=== PATIENT | female | born 1965 | race Caucasian/White ===

== ENCOUNTER 2017-11-05 14:04 | Emergency (ER) | payer OTHER ==
[~2017-11-05] VITALS: Ht 175.3 cm; Wt 83.5 kg
[2017-11-05] MEDS ORDERED: LABETALOL HCL 20 MG/4 ML VIAL IV ONE (14:15)
--- NOTE | 2017-11-05 14:23 | ED General ---
General Stated Complaint: ELEV BP/HEADACHE Source of Information: Patient Exam Limitations: No Limitations History of Present Illness Time Seen by Provider: 14:03 Initial Comments Here with report of right-sided headache with radiation to the right neck. Also Complains of tingling on the right side of the face and right arm. Onset at 10 p.m. last night. States that it was thunderclap and severe. Also noted to have hypertension. She went to the urgent care and was found to have blood pressure 220s over 110s. Transported here via EMS for further evaluation. Patient has family history of brother who had aneurysm and the age of 54. Denies nausea, vomiting or chest pain. Does report some weakness in the right arm. EMS transported. [place] scale 0 with full range of motion and movement of all extremities. Timing/Duration: 12-24 Hours Severity: Moderate, Severe Associated Systoms: No Chest Pain, No Cough, No Diaphoresis, No Fever/Chills, Headaches, No Nausea/Vomiting, No Seizure, No Shortness of Air, No Weakness Allergies and Home Medications Allergies Coded Allergies: No Known Drug Allergies (Unverified , 11/05/17) Home Medications Lisinopril 20 Mg Tablet, 20 MG PO DAILY, (Reported) Montelukast Sodium 10 Mg Tablet, 10 MG PO DAILY, (Reported) Naproxen 500 Mg Tablet, 500 MG PO BID, (Reported) Constitutional: see HPI, No chills, No fever EENTM: No eye pain, No vision loss, No nose congestion Respiratory: No cough, No short of breath Cardiovascular: see HPI, No chest pain, No edema Gastrointestinal: No abdominal pain, No nausea, No vomiting Genitourinary: no symptoms reported Musculoskeletal: see HPI, muscle pain, neck pain Skin: no symptoms reported Psychiatric/Neurological: See HPI, Headache, Numbness, Tingling All Other Systems Reviewed Negative Unless Noted: Yes Past Faznbia-Muengp-Njpqav Hx Patient Social History Alcohol Use: Occasionally Uses Recreational Drug Use: No Smoking Status: Never a Smoker Surgeries History of Surgeries: Yes Surgeries: Abdominal, Section, Orthopedic Respiratory History of Respiratory Disorde: No Cardiovascular History of Cardiac Disorders: Yes Cardiac Disorders: Hypertension Neurological History of Neurological Disord: No Genitourinary History of Genitourinary Disor: No Gastrointestinal History of Gastrointestinal Di: No Musculoskeletal History of Musculoskeletal Dis: Yes Musculoskeletal Disorders: Arthritis Endocrine History of Endocrine Disorders: No Reviewed Nursing Assessment Reviewed/Agree w Nursing PMH: Yes Family Medical History Significant Family History: Cerebral Aneurysm Physical Exam Vital Signs Vital Sign - Last 12Hours 11/05/17 14:11 Temp 97.5 Pulse 62 Resp 11 B/P (MAP) 200/114 (142) Pulse Ox 98 O2 Delivery Room Air Capillary Refill : General Appearance: WD/WN, Mild Distress (headache and neck pain) Eyes: Bilateral Eye Normal Inspection, Bilateral Eye PERRL, Bilateral Eye EOMI HEENT: PERRL/EOMI, TMs Normal, Normal ENT Inspection, Pharynx Normal Neck: Non Tender, Supple Respiratory: Lungs Clear, Normal Breath Sounds Cardiovascular: Regular Rate, Rhythm, No Murmur Gastrointestinal: Non Tender, Soft Back: Normal Inspection, No CVA Tenderness, No Vertebral Tenderness Extremity: Normal Inspection, Normal Range of Motion, Non Tender Neurologic/Psychiatric: Alert, Oriented x3, 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, 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 Skin: Normal Color, Warm/Dry Progress/Results/Core Measures Suspected Sepsis SIRS Temperature: Pulse: Respiratory Rate: Laboratory Tests 11/05/17 14:10: White Blood Count 10.2 Blood Pressure / Mean: Laboratory Tests 11/05/17 14:10: Creatinine 0.97, Platelet Count 274, Total Bilirubin 0.4 Results/Orders Lab Results Laboratory Tests Test 11/05/17 14:10 11/05/17 14:15 Range/Units White Blood Count 10.2 4.3-11.0 10^3/uL Red Blood Count 4.54 4.35-5.85 10^6/uL Hemoglobin 14.1 11.5-16.0 G/DL Hematocrit 42 35-52 % Mean Corpuscular Volume 92 80-99 FL Mean Corpuscular Hemoglobin 31 25-34 PG Mean Corpuscular Hemoglobin Concent 34 32-36 G/DL Red Cell Distribution Width 12.3 10.0-14.5 % Platelet Count 274 130-400 10^3/uL Mean Platelet Volume 9.5 7.4-10.4 FL Neutrophils (%) (Auto) 65 42-75 % Lymphocytes (%) (Auto) 25 12-44 % Monocytes (%) (Auto) 8 0-12 % Eosinophils (%) (Auto) 2 0-10 % Basophils (%) (Auto) 0 0-10 % Neutrophils # (Auto) 6.6 1.8-7.8 X 10^3 Lymphocytes # (Auto) 2.5 1.0-4.0 X 10^3 Monocytes # (Auto) 0.9 0.0-1.0 X 10^3 Eosinophils # (Auto) 0.2 0.0-0.3 10^3/uL Basophils # (Auto) 0.0 0.0-0.1 10^3/uL Erythrocyte Sedimentation Rate 5 0-30 MM/HR Sodium Level 140 135-145 MMOL/L Potassium Level 3.7 3.6-5.0 MMOL/L Chloride Level 105 98-107 MMOL/L Carbon Dioxide Level 25 21-32 MMOL/L Anion Gap 10 5-14 MMOL/L Blood Urea Nitrogen 17 7-18 MG/DL Creatinine 0.97 0.60-1.30 MG/DL Estimat Glomerular Filtration Rate 60 BUN/Creatinine Ratio 18 Glucose Level 101 70-105 MG/DL Calcium Level 9.9 8.5-10.1 MG/DL Total Bilirubin 0.4 0.1-1.0 MG/DL Aspartate Amino Transf (AST/SGOT) 21 5-34 U/L Alanine Aminotransferase (ALT/SGPT) 19 0-55 U/L Alkaline Phosphatase 77 40-136 U/L C-Reactive Protein High Sensitivity 0.13 0.00-0.50 MG/DL Total Protein 8.3 H 6.4-8.2 GM/DL Albumin 4.6 H 3.2-4.5 GM/DL Urine Color YELLOW Urine Clarity CLEAR Urine pH 6.5 5-9 Urine Specific Brumley 1.005 L 1.016-1.022 Urine Protein NEGATIVE NEGATIVE Urine Glucose (UA) NEGATIVE NEGATIVE Urine Ketones NEGATIVE NEGATIVE Urine Nitrite NEGATIVE NEGATIVE Urine Bilirubin NEGATIVE NEGATIVE Urine Urobilinogen NORMAL NORMAL MG/DL Urine Leukocyte Esterase NEGATIVE NEGATIVE Urine RBC (Auto) NEGATIVE NEGATIVE Urine RBC NONE /HPF Urine WBC NONE /HPF Urine Squamous Epithelial Cells RARE /HPF Urine Crystals NONE /LPF Urine Bacteria NEGATIVE /HPF Urine Casts NONE /LPF Urine Mucus NEGATIVE /LPF Urine Culture Indicated NO My Orders Orders - HERON JONES MD Ct Angio Head/Neck (11/05/17 14:45) Iohexol Injection (Omnipaque 350 Mg/Ml 1 (11/05/17 15:00) Sodium Chloride Flush (Catheter Flush Sy (11/05/17 15:00) Fentanyl Injection (Sublimaze Injection (11/05/17 15:38) Hs C Reactive Protein (11/05/17 15:52) Erythrocyte Sedimentation Rate (11/05/17 15:52) Medications Given in ED Current Medications Medications Dose Ordered Sig/Doyle Route Start Time Stop Time Status Last Admin Dose Admin Iohexol 100 ml ONCE ONCE IV 11/05/17 15:00 11/05/17 15:01 DC 11/05/17 15:00 80 ML Labetalol HCl start 10mg, repeat in 10minu... ONCE ONCE IV 11/05/17 14:15 11/05/17 14:16 DC 11/05/17 15:00 10 MG Sodium Chloride 10 ml NEEDED PRN IV 11/05/17 15:00 11/05/17 15:00 10 ML Vital Signs/I&O Vital Sign - Last 12Hours 11/05/17 14:11 Temp 97.5 Pulse 62 Resp 11 B/P (MAP) 200/114 (142) Pulse Ox 98 O2 Delivery Room Air Capillary Refill : Progress Note : Progress Note Seen and evaluated. IV, labs, EKG, UA, CT head. Anticipate CT angiogram of the head and neck. Labetalol 10 mg IV. Repeat Andrew 10 mg IV. 1546: Blood pressure 183/94. Fentanyl 50 g IV for headache. Heart rate 61. CT of the head and CT angiogram head and neck are negative for aneurysm or other acute findings. We will try to treat headache and blood pressure. Monitor patient. Fentanyl 50 g IV given. 1650: Blood pressure 144/82 and headache is much improved. No significant findings overall. Rechecked for sedimentation rate and CRP as well and those were negative. I hesitate to start blood pressure medicine at this point as the blood pressure may be related to the headache. Patient will continue home medication. She'll follow-up with her doctor tomorrow. Discharged home with return precautions. Patient family verbalized understanding instructions and agreement with plan. ECG Initial ECG Impression Date: Nov 05, 2017 Initial ECG Impression Time: 14:11 Initial ECG Rate: 64 Initial ECG Rhythm: Normal Sinus Initial ECG Impression: Normal Initial ECG Comparisson: No Previous ECG Available Comment Sinus rhythm with normal axis. No evidence of ST elevation OK. No previous available for comparison. Interpreted by me. Diagnostic Imaging Diagonstic Imaging: Xray Plain Films/CT/US/NM/MRI: chest Comments NAME: BART DIAZ [facility] REC#: [id number] PT STATUS: REG ER : 1965 PHYSICIAN: ZAKIYA SUE APRN ADMIT DATE: 11/05/17/ER Draft Date of Exam:11/05/17 CHEST 1 VIEW, AP/PA ONLY INDICATION: Headache. Neck pain. COMPARISON: None FINDINGS: Single frontal view of the chest demonstrates normal heart size and pulmonary vascularity. The lungs are well aerated and clear. No large pleural effusion or pneumothorax is seen. The visualized osseous structures show no acute abnormalities. IMPRESSION: 1. No acute cardiopulmonary process. Dictated on workstation # [id number] Dict: 11/05/17 1430 Trans: 11/05/17 1435 GORDO [id number] Interpreted by: LAURA REED MD Electronically signed by: Reviewed: Reviewed by Me Diagonstic Imaging: CT Plain Films/CT/US/NM/MRI: head Comments NAME: BART DIAZ [facility] REC#: [id number] PT STATUS: REG ER : 1965 PHYSICIAN: ZAKIYA SUE APRN ADMIT DATE: 11/05/17/ER Signed Date of Exam: 11/05/17 CT HEAD WO PROCEDURE: CT head without contrast. TECHNIQUE: Multiple contiguous axial images were obtained through the brain without the use of intravenous contrast. INDICATION: Headache. FINDINGS: There is no intracranial hemorrhage, edema or mass effect. The brain parenchyma appears unremarkable. No hydrocephalus. The visualized portions of the orbits and paranasal sinuses appear unremarkable. IMPRESSION: Unremarkable study. Dictated by: Dictated on workstation # [id number] Dict: 11/05/17 1456 Trans: 11/05/17 1458 Interpreted by: ALEX SOLOMON MD Electronically signed by: ALEX SOLOMON MD 11/05/17 1455 Reviewed: Reviewed by Me Diagonstic Imaging: CT Plain Films/CT/US/NM/MRI: head, other Comments [place] NAME: BART DIAZ [facility] REC#: [id number] PT STATUS: REG ER : 1965 PHYSICIAN: HERON JONES MD ADMIT DATE: 11/05/17/ER Draft Date of Exam:11/05/17 CT ANGIO HEAD/NECK PROCEDURE: CT angiography of the head and CT angiography of the neck with and without contrast. TECHNIQUE: Contiguous noncontrast images were obtained from the skull base through the vertex. After intravenous contrast administration, helical CT angiography of the neck was performed. Source data was reformatted into multiple MIP projections. Delayed post contrast acquisition was also obtained. INDICATION: Right-sided face and neck pain. COMPARISON: CT head without contrast performed earlier today. FINDINGS: A noncontrast head CT was not repeated. There is no abnormal intracranial enhancement on the delayed postcontrast imaging. There remains no evidence of infarction, hydrocephalus or extra-axial fluid collections. CTA demonstrates a left common carotid originating from the innominate. A left posterior inferior cerebellar artery is not seen. The basilar, bilateral vertebral, carotid, anterior cerebral, middle cerebral and posterior cerebral arteries are widely patent and without evidence of aneurysm or dissection. Patent anterior communicating arteries. The posterior communicating arteries are diminutive or absent. The superior, anterior inferior and right posterior inferior cerebellar arteries are patent. The dural venous sinuses are grossly patent. No acute CT findings in the soft tissues of the neck. Moderate spondylotic changes in the cervical spine without evidence of high-grade spinal canal narrowing on this nondedicated exam. Scarring in the lung apices. IMPRESSION: 1. A left posterior inferior cerebellar artery is not identified. 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 There is no CT evidence of a cerebellar infarct. 2. No other evidence of high-grade narrowing, aneurysm or dissection involving the major arteries in the head and neck. Findings discussed with Dr. Heron Jones at 3:35 PM on 11/05/2017. Dictated on workstation # [id number] Dict: 11/05/17 1525 Trans: 11/05/17 1539 PASHA [id number] Interpreted by: ISABEL JOSHI MD Electronically signed by: Reviewed: Reviewed by Me Departure Impression Impression: Primary Impression: Headache Qualified Codes: R51 - Headache Additional Impression: Hypertension Qualified Codes: I10 - Essential (primary) hypertension Disposition: HOME, SELF-CARE Condition: Improved Departure-Patient Inst. Decision time for Depature: 16:58 Referrals: UNKNOWN (PCP/Family) Primary Care Physician Patient Instructions: Headache, Adult (DC), High Blood Pressure (DC) Add. Discharge Instructions: Take medications as directed. Continue home medications as directed. Follow- up with your work doctor tomorrow for recheck and further evaluation. Return for worse pain, fever, vomiting, weakness, breathing problems, vision or balance problems or other concerns as needed. Scripts Hydrocodone/Acetaminophen (Hydrocodon -Acetaminophen 5-325) 1 Each Tablet 1-2 EACH PO Q6H Y for PAIN-MODERATE, #6 TAB 0 Refills Prov: HERON JONES MD 11/05/17 HERON JONES MD Nov 05, 2017 14:23
[2017-11-05 14:24] LABS: BASOPHILS % (AUTO) 0 % (0-10); EOSINOPHILS # (AUTO) 0.2 10^3/uL (0.0-0.3); EOSINOPHILS % (AUTO) 2 % (0-10); LYMPHOCYTES # (AUTO) 2.5 X 10^3 (1.0-4.0); LYMPHOCYTES % (AUTO) 25 % (12-44); MEAN CORPUSCULAR HEMOGLOBIN 31 PG (25-34); MEAN CORPUSCULAR HGB CONC 34 G/DL (32-36); MEAN CORPUSCULAR VOLUME 92 FL (80-99); MEAN PLATELET VOLUME 9.5 FL (7.4-10.4); MONOCYTES # (AUTO) 0.9 X 10^3 (0.0-1.0); MONOCYTES % (AUTO) 8 % (0-12); NEUTROPHILS # (AUTO) 6.6 X 10^3 (1.8-7.8); NEUTROPHILS % (AUTO) 65 % (42-75); PLATELET COUNT 274 10^3/uL (130-400); RED BLOOD COUNT 4.54 10^6/uL (4.35-5.85); RED CELL DISTRIBUTION WIDTH 12.3 % (10.0-14.5); WHITE BLOOD COUNT 10.2 10^3/uL (4.3-11.0)
[2017-11-05 14:26] LABS: BILIRUBIN,URINE NEGATIVE (NEGATIVE); KETONES,URINE NEGATIVE (NEGATIVE); LEUKOCYTE ESTERASE ,URINE NEGATIVE (NEGATIVE); NITRITE,URINE NEGATIVE (NEGATIVE); PH,URINE 6.5 (5-9); PROTEIN,URINE NEGATIVE (NEGATIVE); UROBILINOGEN,URINE NORMAL (NORMAL)
--- NOTE | 2017-11-05 14:36 | Diagnostic Imaging Report ---
INDICATION: Headache. Neck pain. COMPARISON: None FINDINGS: Single frontal view of the chest demonstrates normal heart size and pulmonary vascularity. The lungs are well aerated and clear. No large pleural effusion or pneumothorax is seen. The visualized osseous structures show no acute abnormalities. IMPRESSION: 1. No acute cardiopulmonary process. Dictated by: Dictated on workstation # [id number]
[2017-11-05 14:42] LABS: ALBUMIN 4.6 GM/DL (3.2-4.5); BILIRUBIN,TOTAL 0.4 MG/DL (0.1-1.0); CALCIUM 9.9 MG/DL (8.5-10.1); CREATININE SERUM 0.97 MG/DL (0.60-1.30); POTASSIUM 3.7 MMOL/L (3.6-5.0); TOTAL PROTEIN 8.3 GM/DL (6.4-8.2)
[2017-11-05 14:44] LABS: SQUAMOUS EPITHELIAL CELL,UR RARE /HPF
[2017-11-05] MEDS ORDERED: IOHEXOL 350 MG/ML 100 ML (OMNIPAQUE 350) VIAL IV ONE (15:00)
[2017-11-05] MEDS ORDERED: CATHETER FLUSH 10 ML SYR IV PRN (15:00)
--- NOTE | 2017-11-05 15:01 | Diagnostic Imaging Report ---
PROCEDURE: CT head without contrast. TECHNIQUE: Multiple contiguous axial images were obtained through the brain without the use of intravenous contrast. INDICATION: Headache. FINDINGS: There is no intracranial hemorrhage, edema or mass effect. The brain parenchyma appears unremarkable. No hydrocephalus. The visualized portions of the orbits and paranasal sinuses appear unremarkable. IMPRESSION: Unremarkable study. Dictated by: Dictated on workstation # [id number]
[2017-11-05] MEDS ORDERED: LISI-552 PO (15:38)
[2017-11-05] MEDS ORDERED: MONT10TA21 PO (15:38)
[2017-11-05] MEDS ORDERED: NAPR-1071 PO (15:38)
[2017-11-05] MEDS ORDERED: fentaNYL INJECTION 100 MCG/2 ML AMP IVP STA (15:38)
--- NOTE | 2017-11-05 15:39 | Diagnostic Imaging Report ---
PROCEDURE: CT angiography of the head and CT angiography of the neck with and without contrast. TECHNIQUE: Contiguous noncontrast images were obtained from the skull base through the vertex. After intravenous contrast administration, helical CT angiography of the neck was performed. Source data was reformatted into multiple MIP projections. Delayed post contrast acquisition was also obtained. INDICATION: Right-sided face and neck pain. COMPARISON: CT head without contrast performed earlier today. FINDINGS: A noncontrast head CT was not repeated. There is no abnormal intracranial enhancement on the delayed postcontrast imaging. There remains no evidence of infarction, hydrocephalus or extra-axial fluid collections. CTA demonstrates a left common carotid originating from the innominate. A left posterior inferior cerebellar artery is not seen. The basilar, bilateral vertebral, carotid, anterior cerebral, middle cerebral and posterior cerebral arteries are widely patent and without evidence of aneurysm or dissection. Patent anterior communicating arteries. The posterior communicating arteries are diminutive or absent. The superior, anterior inferior and right posterior inferior cerebellar arteries are patent. The dural venous sinuses are grossly patent. No acute CT findings in the soft tissues of the neck. Moderate spondylotic changes in the cervical spine without evidence of high-grade spinal canal narrowing on this nondedicated exam. Scarring in the lung apices. IMPRESSION: 1. A left posterior inferior cerebellar artery is not identified. 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 There is no CT evidence of a cerebellar infarct. 2. No other evidence of high-grade narrowing, aneurysm or dissection involving the major arteries in the head and neck. Findings discussed with Dr. Heron Muse at 3:35 PM on 11/05/2017. Dictated by: Dictated on workstation # [id number]
[2017-11-05] MEDS ORDERED: HYDR-3812 PO (16:59)
[2017-11-05 17:10] VITALS: BP 151/91
== END 2017-11-05 17:10 | disposition home or self-care (01) ==
LOC: ER 14:04
DX: R51 Headache (principal); I10 Essential (primary) hypertension; Z87.59 Personal history of other complications of pregnancy, childbirth and the puerperium
CPT/HCPCS: 36415; 70450; 70496; 70498; 71010; 80053; 81000; 85025; 85652; 86141; 93005

== ENCOUNTER 2017-11-08 12:44 | Day surgery (SDC) | payer OTHER ==
[~2017-11-08] VITALS: Ht 175.3 cm; Wt 83.5 kg
[~2017-11-08 12:44] MED LIST: HYDR-3812 PO; LISI-552 PO; MONT10TA21 PO; NAPR-1071 PO
[2017-11-08 13:19] VITALS: BP 150/94
[2017-11-08] MEDS ORDERED: METO-387 PO (13:24)
[2017-11-08] MEDS ORDERED: ceFAZolin 2 GM/NS 50 ML IV ONE (13:30)
[2017-11-08] MEDS ORDERED: LACTATED RINGERS 1,000 ML IV PRN (14:30)
[2017-11-08] MEDS ORDERED: proPOfol 200 MG/20 ML (DIPRIVAN) VIAL IV ONE (15:18)
[2017-11-08] MEDS ORDERED: DEXAMETHASONE 10 MG/ML (DECADRON) 1 ML VIAL ONE (15:18)
[2017-11-08] MEDS ORDERED: MIDAZOLAM 2 MG/2 ML (VERSED) VIAL ONE (15:18)
[2017-11-08] MEDS ORDERED: SEVOFLURANE (ULTANE) 15 ML INHAL SOLN ONE ×5 (15:18→17:53)
[2017-11-08] MEDS ORDERED: LIDOCAINE PF 2% 5 ML (XYLOCAINE) VIAL ONE (15:18)
[2017-11-08] MEDS ORDERED: fentaNYL INJECTION 100 MCG/2 ML AMP ONE ×2 (15:18→17:34)
[2017-11-08] MEDS ORDERED: ONDANSETRON 4 MG/2 ML (SDV) Z0FRAN ONE (15:18)
--- NOTE | 2017-11-08 16:27 | History & Physicial ---
History of Present Illness History of Present Illness Reason for visit/HPI to undergo temporal artery biopsy to rule out temporal arteritis Date of Admission 11/08/17 Date Seen by Provider: Nov 08, 2017 Time Seen by Provider: 12:25 I consulted on this patient on 11/08/17 16:24 Attending Physician Ora Alves MD Admitting Physician No,Local Physician Consult Allergies and Home Medications Allergies Coded Allergies: No Known Drug Allergies (Unverified , 11/05/17) Home Medications Lisinopril 20 Mg Tablet, 20 MG PO DAILY, (Reported) Metoprolol Succinate 25 Mg Tab.er.24h, 25 MG PO DAILY, (Reported) Montelukast Sodium 10 Mg Tablet, 10 MG PO DAILY, (Reported) Naproxen 500 Mg Tablet, 500 MG PO BID, (Reported) Past Ncxgcnj-Vejyfs-Bocncb Hx Patient Social History Marrital Status: Alcohol Use: Denies Use Recreational Drug Use: No Smoking Status: Former Smoker Type Used: Cigarettes Recent Foreign Travel: No Contact w/other who traveled: No Recent Hopitalizations: No Seasonal Allergies Seasonal Allergies: No Surgeries Yes Abdominal, Section, Orthopedic Respiratory No Cardiovascular Yes Hypertension Neurological No Reproductive System Hx Reproductive Disorders: No Genitourinary No Gastrointestinal No Musculoskeletal Yes Arthritis Endocrine History of Endocrine Disorders: No HEENT History of HEENT Disorders: No Cancer No Psychosocial History of Psychiatric Problem: No Integumentary History of Skin or Integumenta: No Blood Transfusions History of Blood Disorders: No Family Medical History Significant Family History: Cerebral Aneurysm Constitutional: malaise EENTM: see HPI Respiratory: no symptoms reported Cardiovascular: no symptoms reported Gastrointestinal: no symptoms reported Genitourinary: no symptoms reported Musculoskeletal: no symptoms reported Skin: no symptoms reported Psychiatric/Neurological: No Symptoms Reported Physical Exam Vital Signs Vital Sign - Last 12Hours 11/08/17 13:19 Temp 100.2 Pulse 71 Resp 16 B/P (MAP) 150/94 (112) Pulse Ox 96 O2 Delivery Room Air Capillary Refill : General Appearance: No Apparent Distress HEENT: Normal ENT Inspection, Other Neck: Normal Inspection Respiratory: Lungs Clear Cardiovascular: Regular Rate, Rhythm Back: Normal Inspection Extremity: Normal Inspection Neurologic/Psychiatric: Alert, Oriented x3 Skin: Warm/Dry Comments tenderness along the distribution of the right temporal artery Assessment/Plan Assessment and Plan temporal headache on the right side. Temporal arteritis to be ruled out by conventional BIOPSY. Steroids would be initiated once biopsies completed. Problems: ORA ALVES MD Nov 08, 2017 4:27 pm
--- NOTE | 2017-11-08 16:28 | Progress Note-Pre Operative ---
Pre-Operative Progress Note H&P Reviewed The H&P was reviewed, patient examined and no changes noted. Date Seen by Provider: Nov 08, 2017 Time Seen by Provider: 12:25 Date H&P Reviewed: Nov 08, 2017 Time H&P Reviewed: 16:27 Pre-Operative Diagnosis: Right temporal headache ORA ALVES MD Nov 08, 2017 4:28 pm
[2017-11-08] MEDS ORDERED: BUP/EPI 0.5% 1:200,000 (MARCAINE) 10ML VIAL IJ ONE (17:11)
[2017-11-08] MEDS ORDERED: morphine INJ 10 MG/ML 1ML (SYR OR VIAL) IVP PRN (17:30)
[2017-11-08] MEDS ORDERED: ONDANSETRON 4 MG/2 ML (SDV) Z0FRAN IVP PRN (17:30)
[2017-11-08] MEDS ORDERED: HYDR-3812 PO (18:06)
--- NOTE | 2017-11-08 18:06 | Operative Report ---
Operative Report Date of Procedure/Surgery Nov 08, 2017 Surgeon (s) ORA ALVES MD Cnc Mechanic (s): N/A Post-Operative Diagnosis Same Procedure Performed Right temporal artery biopsy Description of Procedure Anesthesia Type: General Estimated blood loss (mL): Minimal Specimen(s) collected/removed segment of superficial temporal artery Description of the Procedure Indication for procedure: This lady presented with severe right temporal headache and therefore it was felt reasonable to rule out temporal arteritis. Prior to initiating steroid therapy, temporal artery biopsy was offered. Informed consent was obtained after reviewing the procedure in detail. Description of the procedure: she was placed supine on the operating table and general anesthesia induced using a laryngeal mask airway. 2 g of Ancef were administered intravenously as prophylaxis against wound infection. Right pre-- auricular region was prepared and draped in the usual sterile manner. A 4 cm incision was made anterior to the right ear lobe and the superficial temporal artery isolated. A short section was excised for biopsy after controlling the proximal and distal ends with 3-0 silk sutures, reinforced with Ligaclips. Hemostasis was achieved using cautery. The incision was closed using 4-0 Vicryl , in a significant fashion. 0.5 percent Marcaine with epinephrine was infiltrated along the incision at the end of the operation. She tolerated the procedure well, was extubated in the operating room and taken to the recovery room in a stable condition. Findings of the Procedure See op report Allergies and Home Medications Allergies Coded Allergies: No Known Drug Allergies (Unverified , 11/05/17) Home Medications Lisinopril 20 Mg Tablet, 20 MG PO DAILY, (Reported) Metoprolol Succinate 25 Mg Tab.er.24h, 25 MG PO DAILY, (Reported) Montelukast Sodium 10 Mg Tablet, 10 MG PO DAILY, (Reported) Naproxen 500 Mg Tablet, 500 MG PO BID, (Reported) ORA ALVES MD Nov 08, 2017 6:06 pm
--- NOTE | 2017-11-08 18:08 | Discharge Inst-Simple/Standard ---
Discharge Inst-Standard Discharge Medications New, Converted or Re-Newed RX: RX on Chart Patient Instructions/Follow Up Plan of Care/Instructions/FU: We shall call once pathology reports become available Activity as Tolerated: Yes Discharge Diet: No Restrictions ORA ALVES MD Nov 08, 2017 6:08 pm
[2017-11-08 19:00] VITALS: BP 141/84
[2017-11-08 19:30] VITALS: BP 141/86
[2017-11-08 19:41] VITALS: BP 141/86
== END 2017-11-08 19:40 | disposition home or self-care (01) ==
LOC: SDC 12:44
PROVIDERS: ATTEND Surgery
DX: R51 Headache (principal); I10 Essential (primary) hypertension; Z87.891 Personal history of nicotine dependence; Z79.899 Other long term (current) drug therapy
CPT/HCPCS: 87081

== ENCOUNTER 2018-05-06 10:30 | Outpatient (CLI) | payer BC ==
[~2018-05-06] VITALS: Ht 175.3 cm; Wt 88.5 kg
[~2018-05-06 10:30] MED LIST changes: +ACHD5005 PO; -HYDR-3812 PO; +METO-387 PO
[2018-05-06] MEDS ORDERED: MULT-974 PO (11:03)
== END 2018-05-06 11:10 ==
LOC: PREOP 10:30
PROVIDERS: ATTEND Surgery
DX: Z01.818 Encounter for other preprocedural examination (principal); Z12.11 Encounter for screening for malignant neoplasm of colon

== ENCOUNTER 2018-05-09 06:54 | Day surgery (SDC) | payer BC ==
[~2018-05-09] VITALS: Ht 175.3 cm; Wt 88.5 kg
[~2018-05-09 06:54] MED LIST changes: +MULT-974 PO
[2018-05-09] MEDS ORDERED: LACTATED RINGERS 1,000 ML IV ONE (06:59)
[2018-05-09] MEDS ORDERED: LACTATED RINGERS 1,000 ML IV STA (07:09)
[2018-05-09] MEDS ORDERED: MIDAZOLAM 2 MG/2 ML (VERSED) VIAL ONE (07:23)
[2018-05-09 07:27] VITALS: BP 165/89
[2018-05-09] MEDS ORDERED: FAMOTIDINE 20MG/2ML IV (PEPCID) ONE (07:43)
[2018-05-09] MEDS ORDERED: LACTATED RINGERS 1,000 ML IV PRN (08:01)
--- NOTE | 2018-05-09 08:08 | Progress Note-Pre Operative ---
Pre-Operative Progress Note H&P Reviewed The H&P was reviewed, patient examined and no changes noted. Time Seen by Provider: 08:01 Date H&P Reviewed: May 09, 2018 Time H&P Reviewed: 08:02 Pre-Operative Diagnosis: screening colonoscopy SHIKHA RAHMAN DO May 09, 2018 08:08
[2018-05-09 08:45] VITALS: BP 135/81
--- NOTE | 2018-05-09 09:10 | Progress Note-Post Operative ---
Post-Operative Progess Note Surgeon (s)/Rn Patient Services (s) Surgeon SHIKHA RAHMAN DO Rn Patient Services: none Pre-Operative Diagnosis screening colonoscopy Post-Operative Diagnosis Ascending colon polyp Int Hemorrhoids Procedure & Operative Findings Date of Procedure 05/09/18 Procedure Performed/Findings colon with hot bx Anesthesia Type IV sedation by MEDICAL ADMINISTRATIVE Estimated Blood Loss Estimated blood loss (mL): scant Specimens/Packing Specimens Removed asc colon polyp SHIKHA RAHMAN DO May 09, 2018 09:09
--- NOTE | 2018-05-09 09:11 | Endoscopy Discharge Instruct ---
Endo Procedure/Findings Findings 1.: Polyp 2.: Internal Hemorrhoids Discharge Instructions - Activity: You might feel a little sleepy until tomorrow. This is due to the medicine you received to relax you. Until tomorrow, you should: NOT drive a car, operate machinery or power tools. NOT drink any alcoholic beverages. NOT make any important decisions or sign importortant papers. Do not return to work until tomorrow, unless otherwise instructed. Resume previous activities tomorrow. Diet: Start by taking liquids. If you tolerate liquids, advance to solid food. Make appointment for one week, Notify Physician - If you experience excessive bleeding, unusual abdominal pain, fever, or chest pain, contact your doctor immediately. Follow-Up: - I have received and understand the above instructions and will call my doctor if I have any further questions. Patient Signature Date Nurse Signature Other (Relationship) SHIKHA RAHMAN DO May 09, 2018 09:11
[2018-05-09 09:27] VITALS: BP 150/87
[2018-05-09 09:39] VITALS: BP 150/87
--- NOTE | 2018-05-09 16:24 | OPERATIVE REPORT ---
DATE OF SERVICE: PREOPERATIVE DIAGNOSIS: Screening colonoscopy. POSTOPERATIVE DIAGNOSES: 1. Colon polyp. 2. Internal hemorrhoids. PROCEDURE: Colonoscopy with hot biopsy. SURGEON: Vadim Stephenson DO. PERSONNEL ADVISER: None. ANESTHESIA: IV sedation by the HARD METALS ENGRAVER HAND. SPECIMEN: Ascending colon polyp. BLOOD LOSS: Scant. FLUIDS: Per anesthesia. POSTOPERATIVE CONDITION: Stable. INDICATION FOR PROCEDURE: The patient is a 53-year-old female who has never had a colonoscopy and needs one for screening. FINDINGS: The patient had one small flat polyp in the ascending colon and some very minimal internal hemorrhoids. PROCEDURE NOTE: After informed consent was obtained, the patient was brought to the endoscopy suite, placed in the bed in the left lateral decubitus position. She was administered IV sedation by HARD METALS ENGRAVER HAND who then monitored her vitals the entire time, heart rate, blood pressure and pulse ox. Inserted the scope, pushed all the way about 140 cm, able to get to the cecum, took a picture of appendiceal orifice, noted the ileocecal valve and then slowly withdrew the scope insufflating to look circumferentially at the bonds looking at the cecum, up the ascending colon and in the ascending colon, I saw a small flat polyp, took a picture of this and then did a hot biopsy, took 2 bites to remove the polyp and then continued up the colon to the hepatic flexure, then down the transverse colon, the splenic flexure, into the descending colon and down in the sigmoid and rectum, retroflexed in the rectal vault saw some minimal internal hemorrhoids, took a picture of this and then removed the scope. The patient tolerated the procedure and she was recovered in endoscopy. Job ID: [id number] DocumentID: [id number] Dictated Date: 05/09/2018 12:02:18 Dietitian Research Date: 05/09/2018 16:23:22 Dictated By: VADIM STEPHENSON DO
== END 2018-05-09 09:40 | disposition home or self-care (01) ==
LOC: ENDO 06:54
PROVIDERS: ATTEND Surgery
DX: Z12.11 Encounter for screening for malignant neoplasm of colon (principal); K63.5 Polyp of colon; K64.8 Other hemorrhoids; I10 Essential (primary) hypertension; Z79.899 Other long term (current) drug therapy
CPT/HCPCS: 84703; 88305

== ENCOUNTER → 2018-08-02 | Outpatient (CLI) | payer BC | LOC: CARD 08:39 | PROVIDERS: ATTEND Internal Medicine Cardiovascular Disease | DX: I10 Essential (primary) hypertension (principal); K63.5 Polyp of colon; R51 Headache; I08.0 Rheumatic disorders of both mitral and aortic valves | CPT/HCPCS: 93306 ==

== ENCOUNTER 2019-08-18 12:37 | Inpatient (IN) | payer BC ==
[~2019-08-18] VITALS: Ht 175.3 cm; Wt 85.0 kg
[2019-08-18 13:35] VITALS: BP 172/93
--- NOTE | 2019-08-18 14:08 | History & Physical-Hospitalist ---
History of Present Illness HPI/Chief Complaint patient is a 54-year-old female with a history of hypertension who was direct admitted for hyponatremia. She reports that routine labs were done at a health fair at her place of employment and found her to be hyponatremic with a sodium of 122. This was on July 22. She followed up with her primary care COPPING MACHINE OPERATOR Lesa and repeat labs revealed persistent hyponatremia. She was advised to start Gatorade, increase salt intake, and decrease her free water intake. she states she still draining roughly 60-65 ounces of water a day. She remained on her HCTZ as well. On follow-up today her sodium level was 118. She has a headache but has no other symptoms. Source: patient Date Seen 08/18/19 Time Seen by a Provider: 14:08 Attending Physician Almita Arguello MD PCP No,Local Physician Referring Physician Date of Admission Aug 18, 2019 at 13:35 Home Medications & Allergies Home Medications Reviewed patient Home Medication Reconciliation performed by pharmacy medication reconciliations mail carrier technician and/or nursing. Patients Allergies have been reviewed. Allergies Allergies Coded Allergies Sulfa (Sulfonamide Antibiotics) (Verified Allergy, Unknown, NAUSEA, 05/06/18) Past Xzadnyn-Fdomoo-Pipnjw Hx Past Med/Social Hx: Reviewed Nursing Past Med/Soc Hx Patient Social History Employed/Student: employed Alcohol Use: Occasionally Uses Smoking Status: Never a Smoker Type Used: Cigarettes Recent Foreign Travel: No Contact w/other who traveled: No Recent Hopitalizations: No Recent Infectious Disease Expo: No Seasonal Allergies Seasonal Allergies: No Past Medical History Surgeries: Abdominal, Section, Orthopedic Cardiac: Hypertension Reproductive: No Musculoskeletal: Arthritis HEENT: Cataract History of Blood Disorders: No Family History Reviewed Nursing Family Hx No Pertinent Family Hx, Cerebral Aneurysm Review of Systems Constitutional: no symptoms reported EENTM: no symptoms reported Respiratory: no symptoms reported Cardiovascular: no symptoms reported Gastrointestinal: nausea Genitourinary: no symptoms reported Musculoskeletal: no symptoms reported Skin: no symptoms reported Psychiatric/Neurological: Headache; Denies Seizure, Denies Weakness Physical Exam Physical Exam Vital Signs Vital Signs - First Documented 08/18/19 13:35 Temp 36.7 Pulse 102 Resp 20 B/P (MAP) 172/93 Pulse Ox 96 O2 Delivery Room Air Capillary Refill : Height, Weight, BMI Height: 5'9.00" Weight: 195lbs. 0.0oz. 88.265471fg; 27.66 BMI Method:Stated General Appearance: No Apparent Distress, WD/WN HEENT: Moist Mucous Membranes; No Scleral Icterus (L), No Scleral Icterus (R) Respiratory: Lungs Clear, No Accessory Muscle Use, No Respiratory Distress Cardiovascular: Regular Rate, Rhythm, No Murmur Gastrointestinal: Normal Bowel Sounds, Non Tender, Soft Extremity: Normal Capillary Refill, No Calf Tenderness, No Pedal Edema Neurologic/Psychiatric: Alert, Oriented x3, Normal Mood/Affect Skin: Normal Color, Warm/Dry Results Results/Procedures Labs Laboratory Tests 08/19/19 04:33 Patient resulted labs reviewed. Imaging: Reviewed Imaging Report Assessment/Plan Admission Diagnosis Hyponatremia, refractory to outpatient measures Admission Status: Inpatient Order (span 2 midnights) Reason for Inpatient Admission: iv fluid, failed outpatien mnagement Assessment and Plan Severe Hyponatremia Appears euvolemic Free water restrict NS at 125ml/hr Critical Care consulted, discussed case with Dr Mehta- will recheck labs and start measures as above, if not improvement consider hypertonic saline in AM HTN On amlodipine, metoprolol, lisinopril, HCTZ Will hold HCTZ- trend BP Cardiology consulted Diagnosis/Problems Diagnosis/Problems (1) Essential (primary) hypertension (2) Hyponatremia ALMITA ARGUELLO MD Aug 18, 2019 14:08
[2019-08-18] MEDS ORDERED: HYDR25TA4 PO (14:24)
[2019-08-18] MEDS ORDERED: MULT-1029 PO (14:24)
[2019-08-18] MEDS ORDERED: CALC600T12 PO (14:24)
[2019-08-18] MEDS ORDERED: EZET10TA49 PO (14:24)
[2019-08-18] MEDS ORDERED: CARB200T6 PO (14:24)
[2019-08-18] MEDS ORDERED: LISI40TA PO (14:24)
[2019-08-18] MEDS ORDERED: CETI10TA17 PO (14:24)
[2019-08-18] MEDS ORDERED: OMG1KC PO (14:24)
[2019-08-18] MEDS ORDERED: NF-ESOM40C PO (14:24)
[2019-08-18] MEDS ORDERED: AMLO10TA4 PO (14:24)
[2019-08-18] MEDS: NS IV 1000 ML 1,000 ML IV SCH ×2 (14:32→22:53)
[2019-08-18] MEDS ORDERED: ACETAMINOPHEN 325 MG TABLET PO PRN (14:45)
[2019-08-18] MEDS ORDERED: ONDANSETRON 4 MG/2 ML (SDV) Z0FRAN IV PRN (14:45)
[2019-08-18] MEDS ORDERED: MILK OF MAGNESIA 400 MG/5 ML 30 ML UDC PO PRN (14:45)
[2019-08-18] MEDS ORDERED: MELATONIN 3 MG TABLET PO PRN (14:45)
[2019-08-18] MEDS ORDERED: BISACODYL 10 MG SUPP (DULCOLAX) PR PRN (14:45)
[2019-08-18] MEDS ORDERED: NITROGLYCERIN 2% OINT 1 GM UNIT DOSE PACKET TOP PRN (14:45)
[2019-08-18] MEDS ORDERED: ANTACID SUSP 30 ML UDC (MYLANTA) PO PRN (14:45)
[2019-08-18] MEDS ORDERED: BENZONATATE 100 MG (TESSALON) CAPSULE PO PRN (14:45)
[2019-08-18 15:02] LABS: BUN/CREATININE RATIO 14; CALCIUM 9.6 MG/DL (8.5-10.1); CARBON DIOXIDE 22 MMOL/L (21-32); CHLORIDE 88 MMOL/L (98-107); CREATININE SERUM 0.79 MG/DL (0.60-1.30); GFR ESTIMATED > 60; GLUCOSE 91 MG/DL (70-105); POTASSIUM 4.1 MMOL/L (3.6-5.0)
[2019-08-18 15:09] LABS: SODIUM 122 MMOL/L (135-145)
--- NOTE | 2019-08-18 15:20 | NUR ---
SPOKE WITH PT (SHE HAS A MED LIST WITH HER), UNFORTUNATELY THERE WAS NOT MUCH ON THE EXTERNAL MED HISTORY FOR ME TO LOOK AT. 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 I HAVE CALLED THEM AND THEY ARE GETTING THE RECORDS TOGETHER AND ARE GOING TO FAX THEM TO ME. THEY SAID IT MAYBE EARLY EVENING BEFORE THEY HAVE IT READY. WHEN I CAN COMPARE DATES AND GET A MORE COMPLETE PICTURE I WILL UPDATE THE MED REC AND THESE NOTES. OTC MEDS: CALCIUM CARB: 2 DAILY CETIRIZINE: 1 DAILY MULTIVITAMIN: 1 DAILY FISH OIL: 1 DAILY Addendum: 08/20/19 at 1019 by ROSA HAWK [facility] NEVER CALLED ME BACK TO VERIFY WHAT MEDS SHE HAD RECEIVED AND PT IS DISCHARGED AT THIS TIME- THE MED REC WAS DONE TO THE BEST OF MY ABILITIES WITH THE INFORMATION THE PT HAD GIVEN ME.
--- NOTE | 2019-08-18 15:24 | Pulmonary Consultation ---
History of Present Illness History of Present Illness Date of Consultation 08/18/19 15:23 Date of Admission Allergies and Home Medications Allergies Coded Allergies: Sulfa (Sulfonamide Antibiotics) (Verified Allergy, Unknown, NAUSEA, 05/06/18) Home Medications Amlodipine Besylate 10 Mg Tablet, 10 MG PO DAILY, (Reported) Calcium Carbonate 600 Mg Tablet, 1,200 MG PO DAILY, (Reported) Carbamazepine 200 Mg Tablet, 200 MG PO TID, (Reported) Cetirizine HCl 10 Mg Tablet, 10 MG PO DAILY, (Reported) Esomeprazole Magnesium 40 Mg Cap, 40 MG PO DAILY, (Reported) Ezetimibe 10 Mg Tablet, 10 MG PO HS, (Reported) Hydrochlorothiazide 25 Mg Tablet, 25 MG PO DAILY, (Reported) Lisinopril 40 Mg Tablet, 40 MG PO DAILY, (Reported) Metoprolol Succinate 25 Mg Tab.er.24h, 25 MG PO DAILY, (Reported) Montelukast Sodium 10 Mg Tablet, 10 MG PO DAILY, (Reported) Multivit-Min/FA/Lycopene/Lut 1 Each Tablet, 1 EACH PO DAILY, (Reported) Naproxen 500 Mg Tablet, 500 MG PO BID, (Reported) [place] 3 Polyunsat Fatty Acids 1,000 Mg Cap, 1,000 MG PO DAILY, (Reported) Past Jekojac-Afqgmt-Hbgkti Hx Past Med/Social Hx: Reviewed Nursing Past Med/Soc Hx Patient Social History Alcohol Use: Occasionally Uses Recreational Drug Use: No Smoking Status: Never a Smoker Type Used: Cigarettes Recent Foreign Travel: No Contact w/Someone Who Travel: No Recent Infectious Disease Expo: No Recent Hopitalizations: No Seasonal Allergies Seasonal Allergies: No Past Medical History Surgeries: Yes Abdominal, Section, Orthopedic Respiratory: No Cardiac: Yes Hypertension Neurological: No Reproductive Disorders: No Genitourinary: No Gastrointestinal: No Musculoskeletal: Yes Arthritis Endocrine: No HEENT: No Cataract Cancer: No Psychosocial: No Integumentary: No Blood Disorders: No Family Medical History Reviewed Nursing Family Hx No Pertinent Family Hx, Cerebral Aneurysm Sepsis Event Evaluation Height, Weight, BMI Height: 5'9.00" Weight: 195lbs. 0.0oz. 88.518859ps; 27.66 BMI Method:Stated Exam Exam Vital Signs Date Time Temp Pulse Resp B/P (MAP) Pulse Ox O2 Delivery O2 Flow Rate FiO2 08/18/19 13:35 36.7 102 20 172/93 96 Room Air Height & Weight Height: 5'9.00" Weight: 195lbs. 0.0oz. 88.923657kc; 27.66 BMI Method:Stated General Appearance: No Apparent Distress, WD/WN HEENT: Moist Mucous Membranes; No Scleral Icterus (L), No Scleral Icterus (R) Respiratory: Lungs Clear, No Accessory Muscle Use, No Respiratory Distress Cardiovascular: Regular Rate, Rhythm, No Murmur Extremity: Normal Capillary Refill, No Calf Tenderness, No Pedal Edema Neurologic/Psychiatric: Alert, Oriented x3, Normal Mood/Affect Skin: Normal Color, Warm/Dry Results Lab Laboratory Tests 08/18/19 14:30 Assessment/Plan Assessment/Plan Severe hyponatremia -Water restriction -Continue NS -Repeat Labs in AM -Hold HCTZ HTN -Monitor NUSRAT BIRCH DO Aug 18, 2019 15:24
--- NOTE | 2019-08-18 16:19 | Consultation-Cardiology ---
HPI-Cardiology Cardiology Consultation Date of Consultation 08/18/19 Date of Admission Time Seen by Provider: 16:16 Indication: Hypertension, hyponatremia HPI 54-year-old lady with history of hypertension, has been doing well, reported that her sodium has been low, tried some increase sodium intake with variable response, had some improvement then become hyponatremic again. She denied any chest pain, occasional edema, have seasonal allergy. No chest pain. No syncope or near syncopal episodes Home Medications & Allergies Allergies: Coded Allergies: Sulfa (Sulfonamide Antibiotics) (Verified Allergy, Unknown, NAUSEA, 05/06/18) Home Medication List Reviewed: Yes VOG-Iwwgcn-Qchpni Hx Patient Social History Marital Status: Employed/Student: employed Alcohol Use: Occasionally Uses Recreational Drug Use: No Smoking Status: Never a Smoker Type Used: Cigarettes Recent Foreign Travel: No Recent Infectious Disease Expo: No Recent Hopitalizations: No Physical Abuse Screen: No Sexual Abuse: No Past Medical History Discussed below Family Medical History Significant Family History: No Pertinent Family Hx, Cerebral Aneurysm Family Medical Hx Noncontributory Review of Systems-General Review of Systems Constitutional: no symptoms reported, see HPI EENTM: see HPI, no symptoms reported Respiratory: see HPI; No cough, No dyspnea on exertion, No hemoptysis, No orthopnea, No phlegm, No short of breath, No stridor, No wheezing, No other Cardiovascular: see HPI; No chest pain, No edema, No Hx of Intervention, No pa lpitations, No syncope, No vascular heart diseas, No other Gastrointestinal: see HPI, nausea Genitourinary: no symptoms reported, see HPI Musculoskeletal: no symptoms reported Skin: no symptoms reported, see HPI Psychiatric/Neurological: See HPI, Headache; Denies Seizure, Denies Weakness Reviewed Test Results Reviewed Test Results Lab Laboratory Tests Test 08/18/19 14:30 Range/Units Sodium Level 122 *L 135-145 MMOL/L Potassium Level 4.1 3.6-5.0 MMOL/L Chloride Level 88 L 98-107 MMOL/L Carbon Dioxide Level 22 21-32 MMOL/L Anion Gap 12 5-14 MMOL/L Blood Urea Nitrogen 11 7-18 MG/DL Creatinine 0.79 0.60-1.30 MG/DL Estimat Glomerular Filtration Rate > 60 BUN/Creatinine Ratio 14 Glucose Level 91 70-105 MG/DL Calcium Level 9.6 8.5-10.1 MG/DL Physical Exam Physical Exam Vital Signs Vital Signs - First Documented 08/18/19 13:35 Temp 36.7 Pulse 102 Resp 20 B/P (MAP) 172/93 Pulse Ox 96 O2 Delivery Room Air Capillary Refill : Height, Weight, BMI Height: 5'9.00" Weight: 195lbs. 0.0oz. 88.564760hs; 27.66 BMI Method:Stated General Appearance: No Apparent Distress, WD/WN Eyes: Bilateral Eye Normal Inspection, Bilateral Eye PERRL, Bilateral Eye EOMI HEENT: Moist Mucous Membranes; No Scleral Icterus (L), No Scleral Icterus (R) Neck: Full Range of Motion, Normal Inspection, Non Tender, Supple, Carotid Bruit Respiratory: Lungs Clear, No Accessory Muscle Use, No Respiratory Distress Cardiovascular: Regular Rate, Rhythm, No Murmur Gastrointestinal: Normal Bowel Sounds, Non Tender, Soft Back: Normal Inspection, No CVA Tenderness, No Vertebral Tenderness Extremity: Normal Capillary Refill, No Calf Tenderness, No Pedal Edema Neurologic/Psychiatric: Alert, Oriented x3, Normal Mood/Affect Skin: Normal Color, Warm/Dry Lymphatic: No Adenopathy A/P-Cardiology Admission Diagnosis Hyponatremia Hypertension Temporal arthritis Hyperlipidemia Assessment/Plan Hyponatremia, could be secondary to medication. I recommend holding hydrochlorothiazide and Norvasc and monitoring blood pressure and her electrolytes in addition to evaluate chest x-ray, urine electrolyte could be helpful in evaluating underlying cause for her hyponatremia. Hypertension, labile, difficult control, continue to monitor Temporal arteritis, trigeminal neuralgia, seen by Dr Steinberg, treated with prednisone, better at this time, not receiving any steroid at this time Echocardiogram was done in July 2018 showing normal LV size with ejection fraction 60-65 percent, grade 1 diastolic dysfunction, mild to moderate MR, aortic valve sclerosis, mild AR, PA pressure 30 mmHg. Hyperlipidemia-patient reports intolerance to Lipitor secondary to myalgias. Currently on Zetia. Monitor lipids History of migraine headache currently stable History of arthritis with bilateral knee scope, history of . Family history of heart disease with father has history of hypertension and heart disease. Clinical Quality Measures DVT/VTE Risk/Contraindication: Risk Factor Score Per Nursin RFS Level Per Nursing on Admit: 1=Low/No VTE PPX VLADIMIR JEAN-BAPTISTE MD Aug 18, 2019 16:19
[2019-08-18 16:21] VITALS: BP 140/70
[2019-08-18] MEDS ORDERED: CATHETER FLUSH 10 ML SYR IV PRN (16:30)
--- NOTE | 2019-08-18 16:40 | NUR ---
BART DIAZ admitted to room 427-1, with an admitting diagnosis of hyponatremia, on 08/18/19 via direct admit, accompanied by self.BART DIAZ introduced to surroundings, call light, bed controls, phone, TV, temperature control, lights, meal times, smoking policy, visitor policy, side rail policy, bathrooms and showers. Patient Rights given to patient in the handbook. BART DIAZ verbalizes understanding that [facility] is not responsible for the loss or damage to any personal effects or valuables that are kept in the patients posession during their hospitalization. BART DIAZ verbalizes understanding of Interdisciplinary Patient Education. Patient and/or family were informed about the Rapid Response Team and its purpose.
--- NOTE | 2019-08-18 17:59 | Diagnostic Imaging Report ---
INDICATION: Hyponatremia COMPARISON: 11/05/2017 FINDINGS: Frontal and lateral views the chest demonstrate clear lungs bilaterally. The heart size is normal. There is no pneumothorax. Osseous structures are normal. IMPRESSION: No acute findings. Normal chest. Dictated by: Dictated on workstation # [id number]
[2019-08-18 20:10] VITALS: BP 126/71
[2019-08-18] MEDS ORDERED: eZETimibe 10 MG (ZETIA) TABLET PO SCH (21:00)
[2019-08-18 23:45] VITALS: BP 105/59
[2019-08-19 03:40] VITALS: BP 141/78
[2019-08-19 05:10] LABS: HEMOGLOBIN 11.2 G/DL (11.5-16.0); MEAN PLATELET VOLUME 8.5 FL (7.4-10.4); RED CELL DISTRIBUTION WIDTH 12.1 % (10.0-14.5); WHITE BLOOD COUNT 4.3 10^3/uL (4.3-11.0)
[2019-08-19 05:30] LABS: BUN/CREATININE RATIO 15; CALCIUM 8.8 MG/DL (8.5-10.1); CARBON DIOXIDE 23 MMOL/L (21-32); CHLORIDE 100 MMOL/L (98-107); CHOLESTEROL 161 MG/DL (< 200); CREATININE SERUM 0.78 MG/DL (0.60-1.30); GFR ESTIMATED > 60; GLUCOSE 101 MG/DL (70-105); HDL CHOLESTEROL 68 MG/DL (40-60); MAGNESIUM 2.1 MG/DL (1.6-2.4); POTASSIUM 4.3 MMOL/L (3.6-5.0); SODIUM 130 MMOL/L (135-145); TRIGLYCERIDES 58 MG/DL (<150); VLDL CHOLESTEROL 12 MG/DL (5-40)
[2019-08-19] MEDS: NS IV 1000 ML 1,000 ML IV SCH (06:35)
[2019-08-19] MEDS ORDERED: CALCIUM CARBONATE 600 MG (CALCARB) TAB PO SCH (07:00)
--- NOTE | 2019-08-19 07:53 | Cardiology Progress Note ---
Subjective Date Seen by Provider: Aug 19, 2019 Time Seen by Provider: 07:52 Subjective/Events-last exam Patient is laying down in bed, feeling better. No new complaint Review of Systems General: No Chills, No Night Sweats, No Fatigue, No Malaise, No Appetite, No Other HEENT: No Head Aches, No Visual Changes, No Eye Pain, No Ear Pain, No Dysphasia, No Sinus Congestion, No Post Nasal Drip, No Sore Throat, No Other Pulmonary: No Dyspnea, No Cough, No Pleuritic Chest Pain, No Other Cardiovascular: No: Chest Pain, Palpitations, Orthopnea, Paroxysmal Noc. Dyspnea, Edema, Lt Headedness, Other Objective-Cardiology Exam Last Set of Vital Signs Vital Signs 08/19/19 03:40 Temp 36.4 Pulse 66 Resp 21 B/P (MAP) 141/78 (99) Pulse Ox 96 O2 Delivery Room Air Capillary Refill : Less Than 3 Seconds I&O Intake and Output 08/18/19 23:59 Intake Total 500 ml Balance 500 ml Intake Oral 500 ml # Voids 3 Daily Weight Change No No General: Alert, Oriented X3, Cooperative HEENT: Atraumatic, PERRLA Neck: Supple, No JVD, No Thyromegaly Lungs: Clear to Auscultation, Normal Air Movement Heart: Regular Rate, Normal S1, Normal S2, No Murmurs Abdomen: Normal Bowel Sounds, Soft, No Tenderness, No Hepatosplenomegaly, No Masses Extremities: No Clubbing, No Cyanosis, No Edema, Normal Pulses, No Tenderness/Swelling Skin: No Rashes, No Breakdown, No Significant Lesion Neuro: Normal Gait, Normal Speech, Strength at 5/5 X4 Ext, Normal Tone, Sensation Intact Psych/Mental Status: Mental Status NL, Mood NL Results Lab Laboratory Tests 08/18/19 14:30 08/19/19 04:33 A/P-Cardiology Admission Diagnosis Hyponatremia Hypertension Temporal arthritis Hyperlipidemia Assessment/Plan Hyponatremia, could be secondary to medication, better today. I recommend d iscontinuation of hydrochlorothiazide and amlodipine and avoiding salt and monitor sodium and blood pressure as an outpatient Hypertension, labile, difficult control, continue to monitor Temporal arteritis, trigeminal neuralgia, seen by Dr Steinberg, treated with prednisone, better at this time, not receiving any steroid at this time Echocardiogram was done in July 2018 showing normal LV size with ejection fraction 60-65 percent, grade 1 diastolic dysfunction, mild to moderate MR, aortic valve sclerosis, mild AR, PA pressure 30 mmHg. Hyperlipidemia-patient reports intolerance to Lipitor secondary to myalgias. Currently on Zetia. Monitor lipids History of migraine headache currently stable History of arthritis with bilateral knee scope, history of . Family history of heart disease with father has history of hypertension and heart disease. Clinical Quality Measures DVT/VTE Risk/Contraindication: Risk Factor Score Per Nursin RFS Level Per Nursing on Admit: 1=Low/No VTE PPX VLADIMIR JEAN-BAPTISTE MD Aug 19, 2019 07:53
[2019-08-19 08:00] VITALS: BP 139/77
--- NOTE | 2019-08-19 08:14 | Pulmonary Progress Note ---
Subjective Date Seen by a Provider: Aug 19, 2019 Time Seen by a Provider: 08:10 Sepsis Event Evaluation Height, Weight, BMI Height: 5'9.00" Weight: 195lbs. 0.0oz. 88.377253jl; 27.66 BMI Method:Stated Exam Exam Vital Signs Date Time Temp Pulse Resp B/P (MAP) Pulse Ox O2 Delivery O2 Flow Rate FiO2 08/19/19 03:40 36.4 66 21 141/78 (99) 96 Room Air 08/18/19 23:45 36.2 67 22 105/59 (74) 96 Room Air 08/18/19 20:10 36.8 73 22 126/71 (89) 94 Room Air 08/18/19 20:02 96 Room Air 08/18/19 16:21 37.2 74 22 140/70 (93) 96 Room Air 08/18/19 15:36 Room Air 08/18/19 13:35 36.7 102 20 172/93 96 Room Air I & O 08/19/19 07:00 Intake Total 900 ml Balance 900 ml Height & Weight Height: 5'9.00" Weight: 195lbs. 0.0oz. 88.221882tp; 27.66 BMI Method:Stated General Appearance: No Apparent Distress, WD/WN HEENT: Moist Mucous Membranes; No Scleral Icterus (L), No Scleral Icterus (R) Neck: Full Range of Motion, Normal Inspection, Non Tender, Supple, Carotid Bruit Respiratory: Lungs Clear, No Accessory Muscle Use, No Respiratory Distress Cardiovascular: Regular Rate, Rhythm, No Murmur Extremity: Normal Capillary Refill, No Calf Tenderness, No Pedal Edema Neurologic/Psychiatric: Alert, Oriented x3, Normal Mood/Affect Skin: Normal Color, Warm/Dry Lymphatic: No Adenopathy Results Lab Laboratory Tests 08/18/19 14:30 08/19/19 04:33 Assessment/Plan Assessment/Plan Severe hyponatremia -Water restriction -Continue NS -Repeat Labs in AM -Hold HCTZ HTN -Monitor JERROD ORNELAS,MED STUDENT Aug 19, 2019 08:14
[2019-08-19] MEDS ORDERED: OMEGA 3 (FISH OIL) 1000 MG CAP PO SCH (09:00)
[2019-08-19] MEDS ORDERED: lisINopril 40 MG (PRINIVIL) TABLET PO SCH (09:00)
[2019-08-19 12:00] VITALS: BP 136/70
--- NOTE | 2019-08-19 12:56 | Discharge Inst-Simple/Standard ---
Discharge Inst-Standard Patient Instructions/Follow Up Plan of Care/Instructions/FU: Please continue to take your medications as written. Please monitor your blood pressures like we talked about and follow up with Lesa Lofton. Activity as Tolerated: Yes Discharge Diet: Other Diet (Fluid restriction - less than 2L per day) Return to The Hospital For: Confusion, weakness, chest pain, shortness of breath, if you feel you are getting worse. HUE MALLORY MD Aug 19, 2019 12:56
--- NOTE | 2019-08-19 13:00 | Discharge Summary ---
Diagnosis/Chief Complaint Date of Admission Aug 18, 2019 at 13:35 Date of Discharge Discharge Date: Aug 19, 2019 Admission Diagnosis Hyponatremia, refractory to outpatient measures Primary Care No,Local Physician Discharge Diagnosis (1) Essential (primary) hypertension (2) Hyponatremia Discharge Summary Discharge Physical Exam Allergies: Coded Allergies: Sulfa (Sulfonamide Antibiotics) (Verified Allergy, Unknown, NAUSEA, 8) Vitals & I&Os Vital Signs Date Time Temp Pulse Resp B/P (MAP) Pulse Ox O2 Delivery O2 Flow Rate FiO2 08/19/19 12:00 37.2 70 16 136/70 (92) 98 Room Air Hospital Course Labs (last 24 hrs) Laboratory Tests 08/18/19 14:30: Sodium Level 122*L, Potassium Level 4.1, Chloride Level 88L, Carbon Dioxide Level 22, Anion Gap 12, Blood Urea Nitrogen 11, Creatinine 0.79, Estimat Glomerular Filtration Rate > 60, BUN/Creatinine Ratio 14, Glucose Level 91, Calcium Level 9.6 08/19/19 04:33: Sodium Level 130L, Potassium Level 4.3, Chloride Level 100, Carbon Dioxide Level 23, Anion Gap 7, Blood Urea Nitrogen 12, Creatinine 0.78, Estimat Glomerular Filtration Rate > 60, BUN/Creatinine Ratio 15, Glucose Level 101, Calcium Level 8.8, White Blood Count 4.3, Red Blood Count 3.64L, Hemoglobin 11.2L, Hematocrit 32L, Mean Corpuscular Volume 87, Mean Corpuscular Hemoglobin 31, Mean Corpuscular Hemoglobin Concent 36, Red Cell Distribution Width 12.1, Platelet Count 273, Mean Platelet Volume 8.5, Magnesium Level 2.1, Triglycerides Level 58, Cholesterol Level 161, LDL Cholesterol Direct 84, VLDL Cholesterol 12, HDL Cholesterol 68H Patient resulted labs reviewed. Imaging: Reviewed Imaging Report Discharge Home Medications: Active Scripts Active Reported Centrum Silver Tablet (Multivit-Min/FA/Lycopene/Lut) 1 Each Tablet 1 Each PO DAILY Calcium (Calcium Carbonate) 600 Mg Tablet 1,200 Mg PO DAILY Fish Oil 1,000 mg Capsule ([place] 3 Polyunsat Fatty Acids) 1,000 Mg Cap 1,000 Mg PO DAILY Carbamazepine 200 Mg Tablet 200 Mg PO TID Cetirizine HCl 10 Mg Tablet 10 Mg PO DAILY Ezetimibe 10 Mg Tablet 10 Mg PO HS Hydrochlorothiazide 25 Mg Tablet 25 Mg PO DAILY Nexium (Esomeprazole Magnesium) 40 Mg Cap 40 Mg PO DAILY Norvasc (Amlodipine Besylate) 10 Mg Tablet 10 Mg PO DAILY Lisinopril 40 Mg Tablet 40 Mg PO DAILY Metoprolol Succinate 25 Mg Tab.er.24h 25 Mg PO DAILY Naprosyn (Naproxen) 500 Mg Tablet 500 Mg PO BID Singulair (Montelukast Sodium) 10 Mg Tablet 10 Mg PO DAILY Instructions to patient/family Please see electronic discharge instructions given to patient. Clinical Quality Measures DVT/VTE Risk/Contraindication: Risk Factor Score Per Nursin RFS Level Per Nursing on Admit: 1=Low/No VTE PPX HUE MALLORY MD Aug 19, 2019 13:00
[2019-08-19 14:05] VITALS: BP 136/70
== END 2019-08-19 14:05 | disposition home or self-care (01) | DRG 641 ==
LOC: 4TH 13:35
PROVIDERS: ADMIT Family Medicine; ATTEND Family Medicine
DX: E87.1 Hypo-osmolality and hyponatremia (principal); I10 Essential (primary) hypertension; F17.210 Nicotine dependence, cigarettes, uncomplicated; M31.6 Other giant cell arteritis; G50.0 Trigeminal neuralgia; E78.5 Hyperlipidemia, unspecified; I35.8 Other nonrheumatic aortic valve disorders; M19.91 Primary osteoarthritis, unspecified site
CPT/HCPCS: 36415; 71046; 80048; 80061; 83735; 85027

== ENCOUNTER → 2020-07-29 | Outpatient (CLI) | payer BC ==
[~2020-07-29] MED LIST changes: +AMLO10TA4 PO; +CARB200T6 PO; +CETI10TA17 PO; +CLC600T PO; +EZET10TA49 PO; +HYDR25TA4 PO; +LISI40TA PO; -METO-387 PO; +MTP25TSR PO; +MULT-1029 PO; +NF-ESOM40C PO; +OMG1KC PO
== END ==
LOC: CARD 08:30
PROVIDERS: ATTEND Internal Medicine Cardiovascular Disease
DX: I10 Essential (primary) hypertension (principal); M31.6 Other giant cell arteritis; I25.10 Atherosclerotic heart disease of native coronary artery without angina pectoris
CPT/HCPCS: 93306

== ENCOUNTER → 2020-09-01 | Outpatient (CLI) | payer BC ==
[~2020-09-01] VITALS: Ht 175 cm; Wt 89.0 kg
[~2020-09-01] MED LIST changes: +CATHETER FLUSH 10 ML SYR IV PRN; +REGADENOSON 0.4 MG/5 ML SYR (LEXISCAN) IV ONE
[2020-09-01 09:20] VITALS: BP 175/85
--- NOTE | 2020-09-01 12:51 | Cardiology Stress Test Report ---
Stress Test Report Date of Procedure/Referring: Date of Procedure: Sep 01, 2020 PCP Vladimir Aguirre MD Admitting Physician No,Local Physician Indications: Coronary artery disease Baseline Heart Rate: 109 Baseline Blood Pressure: Blood Pressure Systolic: 175 Blood Pressure Diastolic: 85 Baseline Vitals Vital Signs Date Time Temp Pulse Resp B/P (MAP) Pulse Ox O2 Delivery O2 Flow Rate FiO2 09/01/20 09:20 75 16 175/85 (115) 97 Room Air Baseline EKG: Baseline EKG: normal sinus rhythm Summary After explaining the procedure to the patient, she signed a consent and then brought to the stress nuclear laboratory. Patient received 0.4 mg Lexiscan for stress test, ECG, heart rate and blood pressure were monitored continuously. Resting and stress dose of radio tracer were injected, imaging was acquired and reviewed in short axis, horizontal long axis and vertical long axis views. TID: 1.14 SSS: 2 SDS: 2 EF: 52 1. Patient tolerated Lexiscan well 2. No significant ischemia or infarction on SPECT images 3. Normal left ventricular size, EF 52 percent VLADIMIR AGUIRRE MD Sep 01, 2020 12:51
== END ==
LOC: CARD 08:15
PROVIDERS: ATTEND Internal Medicine Cardiovascular Disease
DX: I10 Essential (primary) hypertension (principal); I25.10 Atherosclerotic heart disease of native coronary artery without angina pectoris; M31.6 Other giant cell arteritis; Z82.49 Family history of ischemic heart disease and other diseases of the circulatory system
CPT/HCPCS: 78452; 93017; A9502

== ENCOUNTER → 2021-01-19 | Outpatient (CLI) | payer BC ==
[~2021-01-19] MED LIST changes: -CATHETER FLUSH 10 ML SYR IV PRN; -LISI-552 PO; +LISI20TA26 PO; -LISI40TA PO; +LISI40TA9 PO; -REGADENOSON 0.4 MG/5 ML SYR (LEXISCAN) IV ONE
--- NOTE | 2021-01-20 14:00 | Diagnostic Imaging Report ---
INDICATION: Routine screening. COMPARISON is made with prior mammogram from 12/01/2019 and 10/23/2018. 2-D and 3-D bilateral screening mammography was performed with CAD. Both breasts remain heterogeneously dense, limiting the sensitivity of mammography. No mass or malignant appearing microcalcifications are seen. Axillae are unremarkable. IMPRESSION: BI-RADS Category 1 No mammographic features suspicious for malignancy are identified. ACR BI-RADS Category 1: Negative. Result letter will be mailed to the patient. Note: At least 10% of breast cancer is not imaged by mammography. Dictated by: Dictated on workstation # [id number]
== END ==
LOC: RAD 11:30
PROVIDERS: ATTEND Nurse Practitioner Family
DX: Z12.31 Encounter for screening mammogram for malignant neoplasm of breast (principal)
CPT/HCPCS: 77063; 77067